=== PATIENT | female | born 1970 | race Caucasian/White ===

== ENCOUNTER → 2021-09-17 | Day surgery (SDC) | payer OTHER ==
[~2021-09-17] VITALS: Ht 165.1 cm; Wt 106.6 kg
[~2021-09-17] MED LIST: AMLODIPINE BESY10 MG PO; ATORVASTATIN CA40 MG PO; BUPROPION XL150 MG PO; CELECOXIB200 MG PO; DESYREL50 MG PO; FLUOXETINE HCL20 MG PO; MAG-OXIDE 400M400 MG PO; PROBIOTIC1 EAC6 PO; PROPRANOLOL HCL40 MG PO; SPIRONOLACTONE1 EACH PO; VENLAFAXINE HC150 MG PO
[2021-09-17 08:55] LABS: HCG (URINE) SCREEN NEGATIVE (NEGATIVE)
[2021-09-17 08:58] LABS: HCT 43.1 % (37.0-47.0); HGB 14.5 g/dl (12.5-16.0); MCH 31.2 pg (25.0-31.0); MCHC 33.6 g/dL (32.0-36.0); MCV 92.7 fL (78.0-100.0); MPV 9.6 fL (6.0-9.5); RBC 4.65 M/uL (4.20-5.40); RDW 14.7 % (11.5-14.0); WBC 9.3 K/uL (4.0-10.5)
[2021-09-17 09:17] LABS: ALBUMIN 3.7 g/dL (3.4-5.0); BILIRUBIN - TOTAL 0.4 mg/dL (0.2-1.0); BUN/CREAT RATIO (CALC) 20.5 RATIO; CREATININE 1.17 mg/dL (0.51-0.95); GLOBULIN (CALCULATION) 3.8 g/dL; POTASSIUM 4.1 mmol/L (3.5-5.1); TOTAL PROTEIN 7.5 g/dL (6.4-8.2)
== END | disposition home or self-care (01) ==
LOC: FAS 07:49
PROVIDERS: Orthopaedic Surgery
DX: G56.03 Carpal tunnel syndrome, bilateral upper limbs (principal); I10 Essential (primary) hypertension; F17.200 Nicotine dependence, unspecified, uncomplicated; Z88.8 Allergy status to other drugs, medicaments and biological substances; E78.5 Hyperlipidemia, unspecified; Z79.899 Other long term (current) drug therapy
CPT/HCPCS: 36415; 80053; 84703; J1100; J1170; J1885; J2405; J2704; J3010; J7120

== ENCOUNTER → 2021-11-12 | Day surgery (SDC) | payer OTHER ==
[~2021-11-12] VITALS: Ht 165.1 cm; Wt 108.9 kg
[~2021-11-12] MED LIST changes: +MELOXICAM15 MG PO
[2021-11-12 12:02] LABS: HCG (URINE) SCREEN NEGATIVE (NEGATIVE)
[2021-11-12 15:38] LABS: BUN/CREAT RATIO (CALC) 16.3 RATIO; CREATININE 1.04 mg/dL (0.51-0.95)
== END | disposition home or self-care (01) ==
LOC: FAS 10:45
PROVIDERS: Anesthesiology
DX: G56.02 Carpal tunnel syndrome, left upper limb (principal); I10 Essential (primary) hypertension; E78.5 Hyperlipidemia, unspecified; J45.909 Unspecified asthma, uncomplicated; F17.200 Nicotine dependence, unspecified, uncomplicated; F32.A Depression, unspecified; F41.9 Anxiety disorder, unspecified
CPT/HCPCS: 36415; 80048; 84703; J1100; J2250; J2405; J2704; J3010; J7120